=== PATIENT | female | born 2000 | race American Indian/Alaskan Native ===

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

== ENCOUNTER 2021-05-11 21:07 | Emergency (ER) | payer MEDICAID ==
[2021-05-11 21:22] VITALS: BP 107/74
[2021-05-11] MEDS ORDERED: HYDROcodone/ACETAMINOPHEN 5-325 MG TAB PO ONE (22:14)
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
== END 2021-05-11 23:21 | disposition home or self-care (01) ==
LOC: ED 21:07
DX: M25.512 Pain in left shoulder (principal)
CPT/HCPCS: 99282